=== PATIENT | female | born 1995 | race Two or more races ===

== ENCOUNTER 2025-02-01 10:30 | Outpatient (CLI) | payer OTHER | END 2025-02-01 10:31 | disposition home or self-care (01) | LOC: PRENATAL 10:30 | PROVIDERS: ATTEND Obstetrics & Gynecology Maternal & Fetal Medicine | DX: O36.80X0 Pregnancy with inconclusive fetal viability, not applicable or unspecified (principal); Z36.82 Encounter for antenatal screening for nuchal translucency; Z3A.13 13 weeks gestation of pregnancy ==

== ENCOUNTER 2025-03-24 12:19 | Outpatient (CLI) | payer OTHER | END 2025-03-24 12:20 | disposition home or self-care (01) | LOC: PRENATAL 12:19 | PROVIDERS: ATTEND Obstetrics & Gynecology Maternal & Fetal Medicine | DX: O44.00 Complete placenta previa NOS or without hemorrhage, unspecified trimester (principal); Z3A.20 20 weeks gestation of pregnancy ==

== ENCOUNTER 2025-06-13 15:17 | Outpatient (CLI) | payer OTHER | END 2025-06-13 15:19 | disposition home or self-care (01) | LOC: PRENATAL 15:17 | PROVIDERS: ATTEND Obstetrics & Gynecology Maternal & Fetal Medicine | DX: O26.849 Uterine size-date discrepancy, unspecified trimester (principal); O36.8130 Decreased fetal movements, third trimester, not applicable or unspecified; Z3A.33 33 weeks gestation of pregnancy ==

== ENCOUNTER 2025-08-03 13:10 | Inpatient (IN) | payer OTHER ==
[~2025-08-03] VITALS: Ht 157.5 cm; Wt 81.6 kg
[2025-08-07] VITALS (10 sets, daily range): BP systolic 117–134; BP diastolic 64–78
[2025-08-07] MEDS ORDERED: MAGNESIUM200 MG (04:33)
[2025-08-07] MEDS ORDERED: PROBIOTIC250 MG (04:34)
[2025-08-07] MEDS ORDERED: PRENATAL TABLE1 EAC1 (04:34)
[2025-08-07] MEDS ORDERED: IRON236 MG (04:34)
[2025-08-07] MEDS ORDERED: RINGERS SOLUTION,LACTATED 1,000 ML IV SCH (04:45)
[2025-08-07] MEDS ORDERED: OXYTOCIN 20 UNITS/500ML RL PIGGYBAG IV ONE (11:24)
[2025-08-07] MEDS ORDERED: OXYTOCIN 500 ML IV SCH (12:45)
[2025-08-07] MEDS ORDERED: CHLORHEXIDINE GLUCONATE 120 ML BOTTLE TOP ONE ×2 (13:39→17:45)
[2025-08-07] MEDS ORDERED: OXYTOCIN 20 UNITS/1000ML RL PIGGYBAG IV ONE (13:39)
[2025-08-07] MEDS ORDERED: ERYTHROMYCIN BASE OPHT 1GM EACH TUBE OP ONE ×2 (13:39→17:45)
[2025-08-07] MEDS ORDERED: LIDOCAINE HCL 1% 10ML VIAL ONE (13:40)
[2025-08-07] MEDS ORDERED: OXYTOCIN 1,000 ML IV SCH (17:15)
[2025-08-07] MEDS ORDERED: ACETAMINOPHEN 500 MG GEL..CAP PO PRN (17:15)
[2025-08-07] MEDS ORDERED: LIDOCAINE HCL 1% 10ML VIAL IJ ONE (17:45)
[2025-08-07 21:51] LABS: BASO % 0.1 % (0.1-1.2); EOS # 0.05 (0.04-0.54); EOS % 0.2 % (0.7-7.0); LYMPH # 0.93 (1.18-3.74); LYMPH % 4.6 % (19.3-53.1); MEAN PLATELET VOLUME 12.10 fl (9.4-12.4); MONO # 0.96 (0.24-0.82); MONO % 4.8 % (4.7-12.5); NEUT # 17.97 (1.56-6.13); NEUT % 89.9 % (34.0-71.1); RED CELL DISTRIBUTION WIDTH 13.4 % (11.6-14.4)
[2025-08-08] VITALS: BP 108/62
[2025-08-08 08:24] VITALS: BP 107/66
[2025-08-08] MEDS ORDERED: PNV,CALCIUM 72/IRON/FOLIC ACID 1 TAB TABLET PO SCH (09:00)
[2025-08-08 16:09] VITALS: BP 99/65
[2025-08-09 00:11] VITALS: BP 100/61
[2025-08-09 08:09] VITALS: BP 101/63
== END 2025-08-09 11:47 | disposition home or self-care (01) | DRG 807 ==
LOC: OB/GYN 08-07 03:29 → LDR 08-07 03:29 → OB/GYN 08-07 16:46 → LDR 08-11 13:45
PROVIDERS: ADMIT Student in an Organized Health Care Education/Training Program; ATTEND Student in an Organized Health Care Education/Training Program
PROC: 10E0XZZ Delivery of Products of Conception, External Approach (ICD-10-PCS; principal; 2025-08-07)
PROC: 0UQG7ZZ Repair Vagina, Via Natural or Artificial Opening (ICD-10-PCS; 2025-08-07)
PROC: 4A1HXCZ Monitoring of Products of Conception, Cardiac Rate, External Approach (ICD-10-PCS; 2025-08-07)
DX: O71.4 Obstetric high vaginal laceration alone (principal); Z37.0 Single live birth; Z3A.39 39 weeks gestation of pregnancy